=== PATIENT | male | born 1970 | race African-American/Black ===

== ENCOUNTER 2018-09-03 08:02 | Day surgery (SDC) ==
[2015-09-30 03:03] VITALS: BMI 30.8
[2018-09-03 08:27] VITALS: TEMP 97.4
[2018-09-03] MEDS ORDERED: DIPRIVAN 20 ML VIAL IVP ONE (09:55)
[2018-09-03] MEDS ORDERED: VERSED ONE (09:55)
[2018-09-03 11:48] VITALS: BP 136/72
--- NOTE | 2018-09-04 08:54 | OP ---
INDICATIONS FOR PROCEDURE: 48-year-old gentleman presents for screening colonoscopy exam. He believes his father has had colon polyps. MEDICATIONS: SEE ANESTHESIA NOTES. PROCEDURE: COLONOSCOPY, SNARE POLYPECTOMY. REPORT: The risks, benefits, alternatives and limitations were discussed in detail with the patient. Informed consent was obtained. After adequate sedation was achieved, a digital rectal exam revealed good tone, no masses. The colonoscope was introduced into the rectum and advanced under direct visual guidance to the cecum. The cecum was identified by the appendiceal orifice and IC valve. I did attempt to take a picture of the landmarks but the computer would not save the picture. Near the appendiceal orifice there was a small 5 mm sessile polyp. I removed this by snare technique. I then slowly withdrew the scope in a circumferential manner examining the mucosa quite carefully. I looked on the proximal and distal side of folds and flexures as best as possible. I was able to retroflex the scope in the right colon as well as the left colon to increase visualization. In the transverse colon there was a small 5 or 6 mm sessile polyp that I removed by snare technique. In the mid sigmoid area there is a 5 mm sessile polyp that I removed by snare technique. No other abnormalities noted including on retroflex view of the anal canal. The prep was good. Withdrawal time was 11 minutes and 40 seconds. The patient tolerated the procedure well with stable vital signs and pulse oximetry throughout. IMPRESSION: 1. Three (3) small polyps removed. RECOMMENDATIONS: 1. High fiber diet. 2. Office visit as needed. 3. Await pathology results. If these are adenomatous polyps then I suggest a surveillance colonoscopy examination again in 3 years otherwise screening again in 5 years, sooner if there are signs or symptoms to indicate otherwise. cc: Dr. Chris PALOMINO
== END 2018-09-03 11:10 | disposition home or self-care (01) ==
LOC: SURG 08:02
PROVIDERS: ATTEND Internal Medicine Gastroenterology
DX: Z12.11 Encounter for screening for malignant neoplasm of colon (principal); D12.0 Benign neoplasm of cecum; D12.3 Benign neoplasm of transverse colon; K63.5 Polyp of colon; D12.5 Benign neoplasm of sigmoid colon